=== PATIENT | female | born 1995 | race African-American/Black ===

== ENCOUNTER 2016-09-02 07:20 | Emergency (ER) | payer SELFPAY ==
[2016-09-02] MEDS ORDERED: IPRATROPIUM/ALBUTEROL 0.5-2.5 MG/3 ML AMPUL NEB ONE (07:51)
[2016-09-02] MEDS ORDERED: PREDNISONE 20 MG TABLET PO ONE (07:51)
--- NOTE | 2016-09-02 07:57 | ER Document Report ---
ED Respiratory Problem - General Mode of Arrival: Ambulatory Information source: Patient TRAVEL OUTSIDE OF THE [place] IN LAST 30 DAYS: No - HPI Patient complains to provider of: Asthma Context: Hx asthma, Smoker Chest pain/discomfort: Tightness Associated symptoms: Congestion, Wheezing - General Chief Complaint: Cough Stated Complaint: CONGESTION, COUGH Notes: Patient is a 21-year-old female presenting to the emergency department concerned of chest tightness. Patient states that she has a cold with nasal congestion and has been wheezing, and she also has history of asthma. Patient states that she smokes approximately once every few days. Patient does not have a primary care provider (MATHEW CHRISTINE) - Related Data Allergies/Adverse Reactions: No Known Allergies Allergy (Verified 09/02/16 07:26) Past Medical History - General Last Menstrual Period: 08/14/2017 - Social History Smoking Status: Current Some Day Smoker Cigarette use (# per day): Yes - "once every few days" Chew tobacco use (# tins/day): No Frequency of alcohol use: Social Drug Abuse: None Family History: Arthritis, CAD, DM, Hyperlipidemia, Hypertension, Malignancy, Other - asthma Patient has suicidal ideation: No Patient has homicidal ideation: No Pulmonary Medical History: Reports: Hx Asthma Musculoskeltal Medical History: Reports Hx Arthritis, Reports Hx Musculoskeletal Deformity, Reports Hx Musculoskeletal Trauma - Immunizations Immunizations up to date: No Hx Diphtheria, Pertussis, Tetanus Vaccination: No Review of Systems - Review of Systems Constitutional: No symptoms reported EENT: See HPI, Nose congestion Cardiovascular: No symptoms reported Respiratory: See HPI, Wheezing, Other - Chest Tightness Gastrointestinal: No symptoms reported Genitourinary: No symptoms reported Female Genitourinary: No symptoms reported Musculoskeletal: No symptoms reported Skin: No symptoms reported Hematologic/Lymphatic: No symptoms reported Neurological/Psychological: No symptoms reported Physical Exam - General General appearance: Alert - HEENT Head: Normocephalic, Atraumatic Eyes: Normal Pupils: PERRL Sinus: Other - Congestion Nasal: Clear rhinorrhea - Respiratory Respiratory status: No respiratory distress Chest status: Nontender Breath sounds: Rhonchi - Bilateral Rhonchi, Wheezing - Bilateral inspiratory and expiratory wheezes Chest palpation: Normal - Cardiovascular Rhythm: Regular Heart sounds: Normal auscultation Murmur: No Discharge - Discharge Clinical Impression: Exacerbation of asthma Condition: Stable Disposition: HOME, SELF-CARE Additional Instructions: Bronchitis with Bronchospasm (Wheezing): You have bronchitis with bronchospasm (wheezing). Sometimes people develop wheezing with a chest cold. This occurs either because of an underlying tendency toward asthma or because the virus itself irritates the bronchial tubes. This irritation causes cough, shortness of breath, and wheezing. Emergency treatment of bronchospasm may include adrenaline shots or bronchodilator aerosol. You may feel lightheaded and have a rapid pulse for an hour or two. Rest and get plenty of fluids. At home, we'll treat you with a bronchodilator inhaler. Corticosteroids may be required for some patients. Until you recover, avoid chemical fumes, dusts, pollens, and exercising in very cold or dry air. If you smoke, stop now! Most cases of bronchitis get better without antibiotics. We prescribe antibiotics when we believe bacteria are damaging your airways, or if there's high risk the bronchitis will worsen into pneumonia. Increase your fluid intake. A cool mist humidifier may make your lungs more comfortable. An expectorant (cough medicine that loosens phlegm) can help. Repeated episodes of bronchitis and bronchospasm may result in lung damage -- for example, chronic bronchitis, recurrent pneumonias, or emphysema. If you develop a fever, increased wheezing, chest pain, or severe shortness of breath, you should contact the doctor immediately. START THE PREDNISONE TOMORROW(SUNDAY). USE THE INHALER FOR WHEEZING. STOP SMOKING. DRINK PLENTY OF FLUIDS. FOLLOW UP WITH A LOCAL MEDICAL DOCTOR. Prescriptions: Albuterol Sulfate [Proair HFA] 1 - 2 puff IH Q4 PRN #1 inhaler PRN Reason: Prednisone [Deltasone 10 mg Tablet] 10 mg PO ASDIR PRN #21 tablet PRN Reason: Scribe Attestation: 09/02/16 08:26 I personally performed the services described in the documentation, reviewed and edited the documentation which was dictated to the scribe in my presence, and it accurately records my words and actions. (JALEESA SALCEDO) Scribe Documentation - Scribe Written by Scribe:: JALEESA SALCEDO MD, SCRIBE 09/02/16 0822 Acting as scribe for: MATHEW Francis) (JALEESA SALCEDO)
[2016-09-02] MEDS ORDERED: ALBUTEROL SULFATE HFA (90 MCG/PUFF) 8 GM MDI (1 MDI/ER DISP) IH ONE (08:25)
[2016-09-02 08:51] VITALS: BP 131/80
== END 2016-09-02 08:50 | disposition home or self-care (01) ==
LOC: ER 07:20
DX: J45.901 Unspecified asthma with (acute) exacerbation (principal); R07.9 Chest pain, unspecified; R09.81 Nasal congestion; F17.210 Nicotine dependence, cigarettes, uncomplicated
CPT/HCPCS: 94640; 99283; J7512; J3490; J7620

== ENCOUNTER 2018-07-05 01:45 | Emergency (ER) | payer SELFPAY ==
[2018-07-05] MEDS ORDERED: IPRATROPIUM/ALBUTEROL 0.5-2.5 MG/3 ML AMPUL NEB ONE (02:14)
[2018-07-05] MEDS ORDERED: PREDNISONE 20 MG TABLET PO ONE (02:14)
--- NOTE | 2018-07-05 02:16 | ER Document Report ---
HPI - HPI Patient complains to provider of: Cough Time Seen by Provider: 07/05/18 02:08 Onset: Last week Onset/Duration: Persistent Quality of pain: Other - Tightness Pain Level: 3 Context: Patient presents complaining of cough for the past week with wheezing. Patient reports chest tightness with coughing. Patient does have a history of asthma and ran out of her medications. Patient reports subjective fever yesterday. Patient does report that she has been working around chemicals at work and is concerned that that may be triggering her symptoms as well. Associated Symptoms: Chest pain, Productive cough, Fever, Rhinnorhea. denies: Vomiting Exacerbated by: Denies Relieved by: Denies Similar symptoms previously: Yes Recently seen / treated by doctor: No - ROS ROS below otherwise negative: Yes Systems Reviewed and Negative: Yes All other systems reviewed and negative - CONSTITUTIONAL Constitutional: REPORTS: Fever - EENT EENT: REPORTS: Nasal Drainage-Clear, Congestion. DENIES: Sore Throat, Ear Pain - CARDIOVASCULAR Cardiovascular: REPORTS: Chest pain - RESPIRATORY Respiratory: REPORTS: Coughing. DENIES: Trouble Breathing - GASTROINTESTINAL Gastrointestinal: DENIES: Nausea, Patient vomiting - REPRODUCTIVE Reproductive: DENIES: : - DERM Skin Color: Normal Skin Problems: None Past Medical History - General Information source: Patient - Social History Smoking Status: Never Smoker Frequency of alcohol use: Occasional Drug Abuse: None Family History: Arthritis, CAD, DM, Hyperlipidemia, Hypertension, Malignancy, Other - asthma Pulmonary Medical History: Reports: Hx Asthma Neurological Medical History: Denies: Hx Migraine Renal/ Medical History: Denies: Hx Peritoneal Dialysis Musculoskeletal Medical History: Reports Hx Arthritis, Reports Hx Musculoskeletal Deformity, Reports Hx Musculoskeletal Trauma Surgical Hx: Negative - Immunizations Immunizations up to date: No Hx Diphtheria, Pertussis, Tetanus Vaccination: No Vertical Provider Document - CONSTITUTIONAL Agree With Documented VS: Yes Exam Limitations: No Limitations General Appearance: WD/WN, No Apparent Distress - INFECTION CONTROL TRAVEL OUTSIDE OF THE [place] IN LAST 30 DAYS: No - HEENT HEENT: Atraumatic, Normocephalic. negative: Pharyngeal Exudate, Pharyngeal Tenderness, Pharyngeal Erythema, Tympanic Membrane Red, Tympanic Membrane Bulging Notes: clear rhinorrhea - NECK Neck: Normal Inspection, Supple. negative: Lymphadenopathy-Left, Lymphadenopathy-Right - RESPIRATORY Respiratory: No Respiratory Distress, Wheezing. negative: Chest Non-Tender, Rhonchi - CARDIOVASCULAR Cardiovascular: Regular Rate, Regular Rhythm, No Murmur - BACK Back: Normal Inspection - MUSCULOSKELETAL/EXTREMETIES Musculoskeletal/Extremeties: SASCHA RIVAS - NEURO Level of Consciousness: Awake, Alert, Appropriate Motor/Sensory: No Motor Deficit - DERM Integumentary: Warm, Dry, No Rash Course - Re-evaluation Re-evalutation: 07/05/18 03:00 Patient with good air movement bilaterally and wheezing almost completely resolved at this time. Chest x-ray reviewed, no concern for any pneumonia or pneumothorax. Patient states that she has had decreased cough frequency since the breathing treatment. - Vital Signs Vital signs: Temp Pulse Resp BP Pulse Ox 98.5 F 79 20 131/86 H 100 07/05/18 01:52 07/05/18 01:52 07/05/18 01:52 07/05/18 01:52 07/05/18 01:52 - Diagnostic Test Radiology reviewed: Pending, Image reviewed Discharge - Discharge Clinical Impression: Sinus congestion Asthma exacerbation Qualifiers: Asthma severity: unspecified severity Asthma persistence: unspecified Qualified Code(s): J45.901 - Unspecified asthma with (acute) exacerbation Condition: Stable Disposition: HOME, SELF-CARE Instructions: Asthma ([facility]), Inhaled Bronchodilators ([facility]), Steroid Medication Additional Instructions: Return immediately for any new or worsening symptoms Followup with your primary care provider, call tomorrow to make a followup appointment Prescriptions: Guaifenesin/Pseudoephedrne HCl [Mucinex D ER Tablet] 1 each PO Q12 PRN #12 tab.er.12h PRN Reason: Prednisone [Deltasone 20 mg Tablet] 3 tab PO DAILY 4 Days tablet Forms: Return to Work Referrals: [facility] [Provider Group] - Follow up as needed [facility] [Provider Group] - Follow up as needed
[2018-07-05] MEDS: ALBUTEROL SULFATE 0.083% NEB 2.5 MG/3 ML AMPUL NEB SCH (02:25)
[2018-07-05] MEDS ORDERED: ALBUTEROL SULFATE HFA (90 MCG/PUFF) 8 GM MDI (1 MDI/ER DISP) IH ONE (02:59)
[2018-07-05] MEDS ORDERED: PSEUDOEPHEDRINE HCL 30 MG TABLET PO ONE (03:00)
--- NOTE | 2018-07-05 03:07 | RADIOLOGY REPORT (SQ) ---
EXAM DESCRIPTION: XR CHEST 2 VIEWS COMPLETED DATE/TME: 07/05/2018 02:14 CLINICAL HISTORY: 23 years, Female, cough COMPARISON: 9-17 chest NUMBER OF VIEWS: 2 TECHNIQUE: Frontal and lateral views of the chest LIMITATIONS: None. FINDINGS: Heart size is normal. Lungs are clear. No pneumothorax IMPRESSION: Negative chest 2010 [facility] [email or web address]- All Rights Reserved
[2018-07-05 03:11] VITALS: BP 138/83
== END 2018-07-05 03:12 | disposition home or self-care (01) ==
LOC: ER 01:45
DX: J45.901 Unspecified asthma with (acute) exacerbation (principal); R05 Cough; R07.89 Other chest pain; J34.89 Other specified disorders of nose and nasal sinuses; R09.81 Nasal congestion
CPT/HCPCS: 94640 ×2; 99283; 71046; J7512; J3490; J7620

== ENCOUNTER 2018-09-20 06:01 | Emergency (ER) | payer SELFPAY ==
[2018-09-20] MEDS ORDERED: ALBUTEROL SULFATE HFA (90 MCG/PUFF) 8 GM MDI (1 MDI/ER DISP) IH ONE (09:47)
--- NOTE | 2018-09-20 10:11 | ER Document Report ---
HPI - HPI Patient complains to provider of: chest cold, bloody nose, sinus congestion Time Seen by Provider: 09/20/18 07:52 Context: 23-year-old female with history of asthma presents to the emergency department for 1 week of cold symptoms. She states that she has had sinus congestion in the frontal and maxillary areas, has had a bloody nose every time she blows, headache, resolved nausea and vomiting last episode 2 days ago, and general malaise. She denies earache, dizziness, lightheadedness, complains of mild sore throat, complains of shortness of breath, denies chest pain, denies abdominal pain, denies any urinary symptoms. Patient has not gotten her flu shot this year. - CONSTITUTIONAL Constitutional: DENIES: Fever, Chills - EENT EENT: DENIES: Sore Throat, Ear Pain - GASTROINTESTINAL Gastrointestinal: DENIES: Abdominal Pain, Black / Bloody Stools - REPRODUCTIVE Reproductive: DENIES: : - MUSCULOSKELETAL Musculoskeletal: DENIES: Extremity pain Past Medical History - Social History Smoking Status: Never Smoker Family History: Arthritis, CAD, DM, Hyperlipidemia, Hypertension, Malignancy, Other - asthma Patient has suicidal ideation: No Patient has homicidal ideation: No Pulmonary Medical History: Reports: Hx Asthma Neurological Medical History: Denies: Hx Migraine Renal/ Medical History: Denies: Hx Peritoneal Dialysis Musculoskeletal Medical History: Reports Hx Arthritis, Reports Hx Musculoskeletal Deformity, Reports Hx Musculoskeletal Trauma - Immunizations Immunizations up to date: No Hx Diphtheria, Pertussis, Tetanus Vaccination: No Vertical Provider Document - CONSTITUTIONAL Notes: PHYSICAL EXAMINATION: Reviewed vital signs and charting by RN GENERAL: Alert, interacts well. No acute distress. HEAD: Normocephalic, atraumatic. EYES: Pupils equal, round. Extraocular movements intact. ENT: Oral mucosa moist, tongue midline, no tonsillar hypertrophy or exudate, no tonsillar erythema, no petechiae over soft palate. NECK: Full range of motion. Supple. Trachea midline. LUNGS: Clear to auscultation bilaterally, no wheezes, rales, or rhonchi. No respiratory distress. HEART: Regular rate and rhythm. No murmur ABDOMEN: soft, non-tender. Non-distended. Bowel sounds present in all 4 quadrants. no McBurney's point tenderness, no Valero sign. EXTREMITIES: Moves all 4 extremities spontaneously. No edema, No cyanosis. NEUROLOGICAL: Alert and oriented. Normal speech. PSYCH: Normal affect, normal mood. SKIN: Warm, dry, normal turgor. No rashes or lesions noted. - INFECTION CONTROL TRAVEL OUTSIDE OF THE [place] IN LAST 30 DAYS: No Course - Re-evaluation Re-evalutation: 09/20/18 10:39 Well-appearing 23-year-old female with general flulike symptoms. Patient states she has had sinus congestion over the last week. I explained to her that sinusitis is most often viral in nature and if her symptoms persist past 10 days or get worse to get reevaluated for concern for bacterial sinusitis. I told her no antibiotics are warranted at this time. I told her to use saline spray or nasal passages, obtain Sudafed from the pharmacist, take Tylenol and Motrin. Patient is stable for discharge there is no evidence of peritonsillar abscess as uvula was midline, no concerns for any impending respiratory failure. Patient was able to open her mouth completely so I have low concern for any abscess or soft tissue masses. - Vital Signs Vital signs: Temp Pulse Resp BP Pulse Ox 98.7 F 80 18 125/74 97 09/20/18 06:09 09/20/18 06:09 09/20/18 06:09 09/20/18 06:09 09/20/18 06:09 Discharge - Discharge Clinical Impression: Sinus congestion, Viral upper respiratory illness Condition: Good Disposition: HOME, SELF-CARE Instructions: Upper Respiratory Illness ([facility]), Viral Syndrome ([facility]), Acetaminophen Additional Instructions: You were seen in the emergency department this morning for symptoms consistent with an acute upper respiratory infection. Please monitor your sinus congestion over the next several days and if it becomes worse please follow-up with an urgent care or come to the emergency department. Typically it is after 10 days when we are concerned for bacterial illness that would require antibiotics. At this point you do not require antibiotics. Also, for your bloody nose it is most likely due to the dry weather and from blowing her nose. You can get some saline nasal spray and use that 3-4 times a day to help soothe and moisten your nasal passages. Also, please take Tylenol 1000 mg every 6 hours and/or Motrin 600 mg every 6 hours for pain and general body aches. If you develop high fever or any other concerning symptoms please immediately return to the emergency department. Prescriptions: Albuterol Sulfate [Ventolin Hfa 8 gm Mdi (1 Mdi/ER Disp)] 2 puff IH ASDIR PRN #1 inhaler PRN Reason:
[2018-09-20 10:13] VITALS: BP 122/72
== END 2018-09-20 10:19 | disposition home or self-care (01) ==
LOC: ER 06:01
DX: J06.9 Acute upper respiratory infection, unspecified (principal); B97.89 Other viral agents as the cause of diseases classified elsewhere; R09.81 Nasal congestion; R04.0 Epistaxis; R51 Headache; R53.81 Other malaise; J02.9 Acute pharyngitis, unspecified; R06.02 Shortness of breath
CPT/HCPCS: 99283; J3490

== ENCOUNTER 2020-07-23 07:30 | Emergency (ER) | payer SELFPAY ==
[2020-07-23 07:36] VITALS: BP 129/80
--- NOTE | 2020-07-23 09:00 | ER Document Report ---
Entered by ELY MAN SCRIBE 07/23/20 0806 Acting as scribe for:LEATHA KEITH MD ED ENT - General Chief Complaint: Sore Throat Stated Complaint: SORE THROAT Mode of Arrival: Ambulatory Information source: Patient Notes: This 25 year old female patient with a history of asthma presents to the ED today with complaints of sore throat and nasal congestion that started yesterday. She also reports neck pain. Denies fever, chills, cough, wheezing, chest pain, or nausea/vomiting/diarrhea. Denies any COVID concerns. She is a current every day smoker. TRAVEL OUTSIDE OF THE [place] IN LAST 30 DAYS: No - Related Data Allergies/Adverse Reactions: No Known Allergies Allergy (Verified 04/21/17 09:13) Past Medical History - General Information source: Patient, [facility] Records - Social History Smoking Status: Current Every Day Smoker Chew tobacco use (# tins/day): No Smoking Education Provided: No Family History: Reviewed & Not Pertinent, Arthritis, CAD, DM, Hyperlipidemia, Hypertension, Malignancy, Other - asthma Patient has suicidal ideation: No Patient has homicidal ideation: No Pulmonary Medical History: Reports: Hx Asthma Musculoskeletal Medical History: Reports Hx Arthritis, Reports Hx Musculoskeletal Deformity, Reports Hx Musculoskeletal Trauma - Immunizations Immunizations up to date: No Hx Diphtheria, Pertussis, Tetanus Vaccination: No Review of Systems - Review of Systems Constitutional: See HPI. denies: Chills, Fever EENT: See HPI, Nose congestion, Throat pain Cardiovascular: See HPI. denies: Chest pain Respiratory: See HPI. denies: Cough, Wheezing Gastrointestinal: See HPI. denies: Diarrhea, Nausea, Vomiting Genitourinary: No symptoms reported Female Genitourinary: No symptoms reported Musculoskeletal: See HPI, Neck pain Skin: No symptoms reported Hematologic/Lymphatic: No symptoms reported Neurological/Psychological: No symptoms reported -: Yes All other systems reviewed and negative Physical Exam - Vital signs Vitals: Temp Pulse Resp BP Pulse Ox 98.2 F 73 16 129/80 H 99 07/23/20 07:34 07/23/20 07:34 07/23/20 07:34 07/23/20 07:34 07/23/20 07:34 Interpretation: Normal - General General appearance: Appears well, Alert In distress: None - HEENT Head: Normocephalic, Atraumatic Eyes: Normal Pupils: PERRL Nasal: Other - Swollen turbinates bilaterally Pharynx: Erythema - Mild. No: Other - Tonsillar swelling Neck: Supple, Other - Patient complains of anterior cervical tenderness, but I cannot appreciate any with palpation. No: Lymphadenopathy, Shotty nodes - Respiratory Respiratory status: No respiratory distress Chest status: Nontender Breath sounds: Normal Chest palpation: Normal - Cardiovascular Rhythm: Regular Heart sounds: Normal auscultation Murmur: No Friction rub: No Gallop: None auscultated - Abdominal Inspection: Normal Distension: No distension Bowel sounds: Normal Tenderness: Nontender Organomegaly: No organomegaly - Back Back: Normal, Nontender - Extremities General upper extremity: Normal inspection General lower extremity: Normal inspection. No: Edema - Neurological Neuro grossly intact: Yes Orientation: AAOx4 Rosalia Coma Scale Eye Opening: Spontaneous Rosalia Coma Scale Verbal: Oriented Leah Coma Scale Motor: Obeys Commands Leah Coma Scale Total: 15 - Psychological Associated symptoms: Normal affect, Normal mood - Skin Skin Temperature: Warm Skin Moisture: Dry Skin Color: Normal Course - Re-evaluation Re-evalutation: 07/23/20 08:54 Patient resting comfortably. Patient is expressing clear mucus out of her nostrils. Also had his clear mucus that she spit up out of her throat. - Vital Signs Vital signs: Temp Pulse Resp BP Pulse Ox 98.2 F 73 16 129/80 H 99 07/23/20 07:34 07/23/20 07:34 07/23/20 07:34 07/23/20 07:34 07/23/20 07:34 07/23/20 08:55 Vital signs stable afebrile - Laboratory Laboratory results interpreted by me: Strep throat negative Discharge - Discharge Clinical Impression: Upper respiratory infection, Acute pharyngitis, Acute sinusitis Condition: Stable Disposition: HOME, SELF-CARE Instructions: Sore Throat ([facility]), Upper Respiratory Illness ([facility]) Prescriptions: Amoxicillin 875 mg PO BID #20 tablet Prednisone [Deltasone 20 mg Tablet] 20 mg PO BID #10 tablet Forms: Smoking Cessation Education I personally performed the services described in the documentation, reviewed and edited the documentation which was dictated to the scribe in my presence, and it accurately records my words and actions.
== END 2020-07-23 09:09 | disposition home or self-care (01) ==
LOC: ER 07:30
DX: J06.9 Acute upper respiratory infection, unspecified (principal); J02.9 Acute pharyngitis, unspecified; J01.90 Acute sinusitis, unspecified; R09.81 Nasal congestion; J45.909 Unspecified asthma, uncomplicated; M54.2 Cervicalgia; F17.200 Nicotine dependence, unspecified, uncomplicated
CPT/HCPCS: 87070; 87880; 99283